=== PATIENT | female | born 1975 | race Caucasian/White ===

== ENCOUNTER 2017-04-07 22:18 | Emergency (ER) | payer SELFPAY ==
[2017-04-08 03:26] VITALS: BP 140/90
== END 2017-04-08 03:26 | disposition home or self-care (01) ==
LOC: ED 22:18
DX: G43.909 Migraine, unspecified, not intractable, without status migrainosus (principal)
CPT/HCPCS: J0780; J1885; J3010

== ENCOUNTER 2017-05-11 02:13 | Emergency (ER) | payer SELFPAY ==
[2017-05-11 03:12] LABS: BASOPHIL % 0.7 % (0-2); PLATELET COUNT 335 x10^3mcL (130-400); RED CELL DISTRIBUTION WIDTH 14.5 % (11.5-14.5)
[2017-05-11 03:26] LABS: CALCIUM 8.3 mg/dL (8.5-10.1); CARBON DIOXIDE 28.5 mmol/L (21-32); CHLORIDE SERUM 104 mmol/L (98-107); CREATININE SERUM 0.8 mg/dL (0.6-1.0); GFR1 > 60 mL/min; GLUCOSE SERUM 97 mg/dL (74-106); POTASSIUM SERUM 3.7 mmol/L (3.5-5.1); SODIUM SERUM 140 mmol/L (136-145)
[2017-05-11 03:30] LABS: ALKALINE PHOSPHATASE 134 U/L (46-116); ALT/SGPT 25 U/L (14-59); AST/SGOT 26 U/L (15-37); BILIRUBIN TOTAL 0.2 mg/dL (0.20-1.00); TOTAL PROTEIN, SERUM 7.9 g/dL (6.4-8.2)
[2017-05-11 03:32] LABS: ALBUMIN 3.1 g/dL (3.4-5.0)
[2017-05-11 04:16] LABS: UA SPECIFIC GRAVITY 1.015 (1.005-1.035); microscopic required? YES; urine erythrocyte TRACE (NEGATIVE)
[2017-05-11 04:59] VITALS: BP 173/105
== END 2017-05-11 04:59 | disposition home or self-care (01) ==
LOC: ED 02:13
PROVIDERS: Emergency Medicine
DX: R21 Rash and other nonspecific skin eruption (principal); R59.0 Localized enlarged lymph nodes; N39.0 Urinary tract infection, site not specified
CPT/HCPCS: 36415; J1200; J1885; Q0092

== ENCOUNTER 2017-07-27 22:06 | Emergency (ER) | payer SELFPAY ==
[2017-07-28 00:58] VITALS: BP 145/76
== END 2017-07-28 00:58 | disposition home or self-care (01) ==
LOC: ED 22:06
DX: R21 Rash and other nonspecific skin eruption (principal); G89.29 Other chronic pain
CPT/HCPCS: J2930; Q0163

== ENCOUNTER 2017-11-02 21:14 | Emergency (ER) | payer SELFPAY ==
[~2017-11-02] VITALS: Ht 154.9 cm; Wt 72.1 kg
[2017-11-02 21:20] VITALS: Ht 154.9 cm; Wt 72.1 kg
[2017-11-03 00:11] VITALS: BP 160/82
== END 2017-11-03 00:11 | disposition home or self-care (01) ==
LOC: ED 21:14
DX: J20.9 Acute bronchitis, unspecified (principal); I10 Essential (primary) hypertension; G43.909 Migraine, unspecified, not intractable, without status migrainosus; G89.29 Other chronic pain
CPT/HCPCS: J7512; J7620; Q0092

== ENCOUNTER 2018-09-07 14:44 | Inpatient (IN) | payer SELFPAY ==
[~2018-09-07] VITALS: Ht 154.9 cm; Wt 74.4 kg
[2018-09-07 14:56] VITALS: Ht 154.9 cm; Wt 74.4 kg
[2018-09-07 15:39] LABS: BASOPHIL % 1.5 % (0-2); PLATELET COUNT 295 x10^3mcL (130-400)
[2018-09-07 15:42] LABS: RED CELL DISTRIBUTION WIDTH 15.4 % (11.5-14.5)
[2018-09-07 16:02] LABS: CALCIUM 8.9 mg/dL (8.5-10.1); CARBON DIOXIDE 27.4 mmol/L (21-32); CHLORIDE SERUM 102 mmol/L (98-107); CREATININE SERUM 0.9 mg/dL (0.6-1.0); GFR1 > 60 mL/min; GLUCOSE SERUM 88 mg/dL (74-106); POTASSIUM SERUM 3.9 mmol/L (3.5-5.1); SODIUM SERUM 137 mmol/L (136-145)
[2018-09-07 16:06] LABS: ALBUMIN 3.7 g/dL (3.4-5.0); ALKALINE PHOSPHATASE 94 U/L (46-116); ALT/SGPT 18 U/L (14-59); AST/SGOT 29 U/L (15-37); BILIRUBIN TOTAL 0.2 mg/dL (0.20-1.00)
[2018-09-07 16:07] LABS: TOTAL PROTEIN, SERUM 8.4 g/dL (6.4-8.2)
[2018-09-07 17:31] LABS: CHOLESTEROL/HDL RATIO 3.5; MAGNESIUM 2.3 mg/dL (1.8-2.4); PHOSPHOROUS 3.1 mg/dL (2.5-4.9)
[2018-09-07 17:36] LABS: T3 TOTAL 1.36 ng/mL
[2018-09-07 17:40] LABS: FREE T4 1.01 ng/dL (0.76-1.46); T4(THYROXINE) 9.3 ug/dL (4.7-13.3)
[2018-09-07 19:12] VITALS: BP 151/94
[2018-09-07 21:27] VITALS: BP 138/90
[2018-09-08 05:32] VITALS: BP 116/67
[2018-09-08 06:09] LABS: BASOPHIL % 0.7 % (0-2); PLATELET COUNT 268 x10^3mcL (130-400)
[2018-09-08 06:22] LABS: CHLORIDE SERUM 108 mmol/L (98-107); CREATININE SERUM 0.8 mg/dL (0.6-1.0); GFR1 > 60 mL/min; GLUCOSE SERUM 113 mg/dL (74-106); MAGNESIUM 2.3 mg/dL (1.8-2.4); PHOSPHOROUS 4.2 mg/dL (2.5-4.9); POTASSIUM SERUM 3.8 mmol/L (3.5-5.1); SODIUM SERUM 142 mmol/L (136-145)
[2018-09-08 06:39] LABS: RED CELL DISTRIBUTION WIDTH 15.1 % (11.5-14.5)
[2018-09-08 10:01] VITALS: BP 141/85
[2018-09-08 12:42] VITALS: BP 137/77
[2018-09-08 13:59] VITALS: BP 137/77
[2018-09-08] MEDS ORDERED: LIPI20 PO (14:03)
[2018-09-08] MEDS ORDERED: CLOPIDOGREL75 M1 PO (14:03)
[2018-09-08] MEDS ORDERED: LOV80I SC (14:03)
[2018-09-08] MEDS ORDERED: COR3 PO (14:04)
[2018-09-08] MEDS ORDERED: ZES5 PO (14:04)
[2018-09-08] MEDS ORDERED: APAP/HYDROCODON1 T13 PO (14:04)
[2018-09-08] MEDS ORDERED: TYL325 PO (14:05)
[2018-09-08] MEDS ORDERED: MOR2I IV (14:05)
[2018-09-08] MEDS ORDERED: ZOFI IV (14:06)
== END 2018-09-08 15:00 | disposition short-term general hospital (02) | DRG 280 ==
LOC: ED 14:44 → DU 16:42
PROVIDERS: Emergency Medicine; Family Medicine
DX: I21.4 Non-ST elevation (NSTEMI) myocardial infarction (principal); I50.43 Acute on chronic combined systolic (congestive) and diastolic (congestive) heart failure; I42.0 Dilated cardiomyopathy; G43.909 Migraine, unspecified, not intractable, without status migrainosus; G89.29 Other chronic pain; M54.9 Dorsalgia, unspecified; L40.9 Psoriasis, unspecified; F41.9 Anxiety disorder, unspecified; F32.9 Major depressive disorder, single episode, unspecified; I11.0 Hypertensive heart disease with heart failure; E78.5 Hyperlipidemia, unspecified; I34.0 Nonrheumatic mitral (valve) insufficiency; E78.00 Pure hypercholesterolemia, unspecified; Z98.891 History of uterine scar from previous surgery; Z82.49 Family history of ischemic heart disease and other diseases of the circulatory system; Z83.3 Family history of diabetes mellitus; Z80.3 Family history of malignant neoplasm of breast; Z80.8 Family history of malignant neoplasm of other organs or systems
CPT/HCPCS: 83880; 84439; J1650; J1885; J2270; J3490; J7030; Q0092

== ENCOUNTER 2018-09-30 16:35 | Emergency (ER) | payer SELFPAY ==
[~2018-09-30] VITALS: Ht 154.9 cm; Wt 76.7 kg
[~2018-09-30 16:35] MED LIST: APAP/HYDROCODON1 T13 PO; CLOPIDOGREL75 M1 PO; COR3 PO; LIPI20 PO; LOV80I SC; MOR2I IV; TYL325 PO; ZES5 PO; ZOFI IV
[2018-09-30 16:47] VITALS: Ht 154.9 cm; Wt 76.7 kg
[2018-09-30 17:47] LABS: UA SPECIFIC GRAVITY 1.015 (1.005-1.035); microscopic required? YES; urine erythrocyte TRACE (NEGATIVE)
[2018-09-30 17:48] LABS: BASOPHIL % 0.7 % (0-2); PLATELET COUNT 300 x10^3mcL (130-400)
[2018-09-30 17:54] LABS: AMPHETAMINE QUAL UR POSITIVE (See below)
[2018-09-30 17:58] LABS: CALCIUM 8.5 mg/dL (8.5-10.1); CARBON DIOXIDE 32.3 mmol/L (21-32); CHLORIDE SERUM 101 mmol/L (98-107); CREATININE SERUM 0.9 mg/dL (0.6-1.0); GFR1 > 60 mL/min; GLUCOSE SERUM 102 mg/dL (74-106); POTASSIUM SERUM 3.9 mmol/L (3.5-5.1); SODIUM SERUM 138 mmol/L (136-145)
[2018-09-30 18:06] LABS: ALBUMIN 3.6 g/dL (3.4-5.0); ALKALINE PHOSPHATASE 94 U/L (46-116); ALT/SGPT 20 U/L (14-59); AMYLASE 81 U/L (25-115); AST/SGOT 16 U/L (15-37); BILIRUBIN TOTAL 0.16 mg/dL (0.20-1.00); CHOLESTEROL 191 mg/dL (<200); HDL CHOLESTEROL 56 mg/dL (40-60); LIPASE 255 IU/L (73-393); MAGNESIUM 2.1 mg/dL (1.8-2.4); TOTAL PROTEIN, SERUM 7.7 g/dL (6.4-8.2)
[2018-09-30 19:14] VITALS: BP 135/92
== END 2018-09-30 19:14 | disposition home or self-care (01) ==
LOC: ED 16:35
PROVIDERS: Emergency Medicine
DX: R07.89 Other chest pain (principal); I10 Essential (primary) hypertension; N39.0 Urinary tract infection, site not specified; F15.20 Other stimulant dependence, uncomplicated; F12.10 Cannabis abuse, uncomplicated; I45.2 Bifascicular block; L40.9 Psoriasis, unspecified; M25.512 Pain in left shoulder; G89.29 Other chronic pain; M54.9 Dorsalgia, unspecified; G43.909 Migraine, unspecified, not intractable, without status migrainosus; Z98.890 Other specified postprocedural states
CPT/HCPCS: 36415; 82962; 83880; Q0092